=== PATIENT | female | born 1995 | race African-American/Black ===

== ENCOUNTER 2016-09-27 17:50 | Emergency (ER) | payer MEDICAID ==
[~2016-09-27] VITALS: Ht 154.9 cm; Wt 99.2 kg
[~2016-09-27 17:50] MED LIST: ALBUTEROL
[2016-09-27 19:11] VITALS: BP 118/81
[2016-09-27] MEDS ORDERED: IPRATROPIUM/ALBUTEROL 0.5-3(2.5)MG/3ML NEB HHN ONE (19:15)
[2016-09-27] MEDS ORDERED: PREDNISONE 20MG TABLET PO SCH (19:15)
== END 2016-09-27 20:08 | disposition home or self-care (01) ==
LOC: ER 17:51
DX: J45.901 Unspecified asthma with (acute) exacerbation (principal); Q05.9 Spina bifida, unspecified; Z88.0 Allergy status to penicillin; Z88.3 Allergy status to other anti-infective agents; Z98.890 Other specified postprocedural states
CPT/HCPCS: 94640; 99283; J7030; J7512; J7620

== ENCOUNTER 2017-03-28 09:51 | Emergency (ER) | payer MEDICAID ==
[~2017-03-28] VITALS: Ht 154.9 cm; Wt 102.0 kg
[2017-03-28 11:02] VITALS: BP 128/69
== END 2017-03-28 12:35 | disposition home or self-care (01) ==
LOC: ER 09:51
DX: S93.601A Unspecified sprain of right foot, initial encounter (principal); Z88.0 Allergy status to penicillin; Z88.3 Allergy status to other anti-infective agents; Z87.728 Personal history of other specified (corrected) congenital malformations of nervous system and sense organs; X58.XXXA Exposure to other specified factors, initial encounter; Y93.89 Activity, other specified; Y92.013 Bedroom of single-family (private) house as the place of occurrence of the external cause
CPT/HCPCS: 73630; 81025; 99284